=== PATIENT | male | born 1950 ===

== ENCOUNTER 2018-03-04 10:27 | Emergency (ER) | payer OTHER ==
[~2018-03-04] VITALS: Ht 162.6 cm; Wt 112.5 kg
[2018-03-04] MEDS ORDERED: ATORVASTATIN CA20 MG (10:33)
[2018-03-04] MEDS ORDERED: COZAAR100 MG PO (10:33)
[2018-03-04] MEDS ORDERED: TOPROL XL50 MG PO (10:34)
[2018-03-04] MEDS ORDERED: ASPIR 8181 MG PO (10:34)
== END 2018-03-04 15:27 | disposition home or self-care (01) ==
LOC: ER 10:27
DX: R10.31 Right lower quadrant pain (principal); K57.30 Diverticulosis of large intestine without perforation or abscess without bleeding